=== PATIENT | female | born 1960 | race Caucasian/White ===

== ENCOUNTER 2018-11-02 10:03 | Observation (INO) | payer SELFPAY ==
[2018-11-02] MEDS ORDERED: MORPHINE SULFATE 10 MG/ML INJ IV ONE ×2 (10:50→14:31)
[2018-11-02] MEDS ORDERED: LIDOCAINE 5% (700 MG) TRANSDERMAL ADH..PATCH TP ONE (10:50)
--- NOTE | 2018-11-02 10:55 | ER Document Report ---
ED Medical Screen (RME) - General Chief Complaint: Leg Pain Stated Complaint: RIGHT LEG PAIN Time Seen by Provider: 11/02/18 10:41 TRAVEL OUTSIDE OF THE [place] IN LAST 30 DAYS: No - HPI Notes: 11/02/18 10:51 Patient is a 58-year-old female with a history of coronary artery disease with stent placement (latest 2 years ago), hypertension, tobacco abuse, sciatica who presents complaining of right buttock pain that radiates down the posterior leg to her knee which is most consistent with sciatic flareup for her. Pt states that she started having chest heaviness and sob this morning. She is not on any blood thinning medications. No history of DVT/PE. Denies THOMAS, fever, neck pain, URI, Abd pain, dysuria, or rash. I have treated and performed a rapid initial assessment of this patient. A comprehensive ED assessment and evaluation of the patient, analysis of test results and completion of medical decision making process will be conducted by additional ED providers. PHYSICAL EXAMINATION: GENERAL: Well-appearing, well-nourished and in no acute distress. A&Ox4. Answers questions appropriately. LUNGS: Breath sounds clear to auscultation bilaterally and equal. No wheezes rales or rhonchi. HEART: Regular rate and rhythm without murmurs, rubs, gallops. Extremities: No cyanosis, clubbing, or edema b/l. NEUROLOGICAL: Normal speech, normal gait. PSYCH: Normal mood, normal affect. - Related Data Allergies/Adverse Reactions: carbamazepine [From Tegretol] Allergy (Verified 11/02/18 10:07) codeine Allergy (Verified 11/02/18 10:07) Physical Exam - Vital signs Vitals: Temp Pulse Resp BP Pulse Ox 97.5 F 56 L 20 99/65 L 98 11/02/18 10:09 11/02/18 10:09 11/02/18 10:09 11/02/18 10:09 11/02/18 10:09 Course - Vital Signs Vital signs: Temp Pulse Resp BP Pulse Ox 97.5 F 56 L 20 99/65 L 98 11/02/18 10:09 11/02/18 10:09 11/02/18 10:09 11/02/18 10:09 11/02/18 10:09
--- NOTE | 2018-11-02 11:49 | RADIOLOGY REPORT (SQ) ---
EXAM DESCRIPTION: CHEST 2 VIEWS COMPLETED DATE/TIME: 11/02/2018 11:08 am REASON FOR STUDY: chest heaviness, sob COMPARISON: None. EXAM PARAMETERS: NUMBER OF VIEWS: two views TECHNIQUE: Digital Frontal and Lateral radiographic views of the chest acquired. RADIATION DOSE: NA LIMITATIONS: none FINDINGS: LUNGS AND PLEURA: No opacities, masses or pneumothorax. No pleural effusion. MEDIASTINUM AND HILAR STRUCTURES: No masses or contour abnormalities. HEART AND VASCULAR STRUCTURES: Heart normal size. No evidence for failure. BONES: No acute findings. HARDWARE: None in the chest. OTHER: No other significant finding. IMPRESSION: NO ACUTE RADIOGRAPHIC FINDING IN THE CHEST. TECHNICAL DOCUMENTATION: JOB ID: [id number] [employer]- All Rights Reserved Reading location - IP/workstation name: [email or web address]
[2018-11-02 11:53] LABS: ABSOLUTE EOSINOPHILS # (AUTO) 0.2 10^3/uL (0.0-0.6); ABSOLUTE MONOCYTES (AUTO) 0.6 10^3/uL (0.1-1.4); HEMOGLOBIN 15.2 g/dL (12.0-15.5); MONOCYTES % (AUTO) 9.5 % (3-13); RED CELL DISTRIBUTION WIDTH 13.7 % (11.5-14.0); TOTAL CELLS COUNTED % (AUTO) 100 %; WHITE BLOOD COUNT 6.7 10^3/uL (4.0-10.5)
[2018-11-02 12:02] LABS: APPEARANCE,URINE SLIGHTLY-CLOUDY; BILIRUBIN,URINE NEGATIVE (NEGATIVE); COLOR,URINE YELLOW; GLUCOSE, URINE NEGATIVE (NEGATIVE); KETONES,URINE NEGATIVE (NEGATIVE); LEUKOCYTE ESTERASE,URINE NEGATIVE (NEGATIVE); NITRITE,URINE NEGATIVE (NEGATIVE); PROTEIN,URINE NEGATIVE (NEGATIVE); URINE SPECIFIC GRAVITY 1.018
[2018-11-02 12:04] LABS: ABSOLUTE NEUT (AUTO) 3.8 10^3/uL (1.7-8.2); BASOPHILS % (AUTO) 0.7 % (0-2); EOSINOPHILS % (AUTO) 3.5 % (0-6); HEMATOCRIT 45.2 % (36.0-47.0); LYMPHOCYTES % (AUTO) 29.3 % (13-45); MEAN CORPUSCULAR HEMOGLOBIN 30.3 pg (27.0-33.4); MEAN CORPUSCULAR HGB CONC 33.5 g/dL (32.0-36.0); MEAN CORPUSCULAR VOLUME 90 fl (80-97); PLATELET COUNT 170 10^3/uL (150-450)
[2018-11-02 12:07] LABS: ALBUMIN 4.6 g/dL (3.5-5.0); ALKALINE PHOSPHATASE 72 U/L (38-126); ANION GAP 9 (5-19); ASPARTATE AMINO TRANSFERASE 24 U/L (14-36); BILIRUBIN,DIRECT 0.4 mg/dL (0.0-0.4); BILIRUBIN,TOTAL 0.8 mg/dL (0.2-1.3); BLOOD UREA NITROGEN 8 mg/dL (7-20); CALCIUM 9.9 mg/dL (8.4-10.2); CARBON DIOXIDE 27 mmol/L (22-30); CHLORIDE 103 mmol/L (98-107); GLUCOSE 90 mg/dL (75-110); POTASSIUM 4.3 mmol/L (3.6-5.0); TOTAL PROTEIN 8.1 g/dL (6.3-8.2)
--- NOTE | 2018-11-02 12:44 | EKG REPORT ---
SEVERITY:- ABNORMAL ECG - SINUS RHYTHM LVH BY VOLTAGE NONSPECIFIC T ABNORMALITIES, INFERIOR LEADS : Confirmed by: Lukas Ovalles MD 02-Nov-2018 12:43:59
--- NOTE | 2018-11-02 13:43 | ER Document Report ---
ED General - General Chief Complaint: Leg Pain Stated Complaint: RIGHT LEG PAIN Time Seen by Provider: 11/02/18 10:41 TRAVEL OUTSIDE OF THE [place] IN LAST 30 DAYS: No - HPI Notes: 58-year-old female with history of CO with 3 stents to the emergency department with 2 separate complaints. She states that her initial complaint is low back pain that radiates into her right buttocks and down the back of her leg. She states that this is been ongoing for the past several days. She states that she has a history of sciatica and this feels very similar. She states that she usually needs muscle relaxants plus pain medicine to help control it. She denies any recent falls, trauma, saddle paresthesias, bladder bowel incontinence, urinary retention, fevers,or IV drug abuse. Guards to her second complaint, she states that she has been having chest pain and shortness of breath since this morning about 6 AM. She states that it feels like heaviness in her chest and she admits to associated nausea. She states that she had a brief episode of this yesterday as well and she had nausea and diaphoresis with it. She states it is similar but less pain than when she had her heart attack. She had a heart attack 2 years ago and and was taken immediately to [facility] where 3 stents were placed. She admits that she has just recently started to smoke again. She states that she does not take any blood thinners. She states that occasionally she will take an 81 mg aspirin. She has not taken one today. She states that her chest pain seems to get a little bit worse with big deep breath but also with congestion. She denies any cough, fevers, blunt trauma to the chest, or any other complaints. - Related Data Allergies/Adverse Reactions: carbamazepine [From Tegretol] Allergy (Verified 11/02/18 10:07) codeine Allergy (Verified 11/02/18 10:07) Past Medical History - General Information source: Patient - Social History Smoking Status: Current Every Day Smoker Frequency of alcohol use: None Drug Abuse: None Family History: CAD, Hypertension Review of Systems - Review of Systems Constitutional: Diaphoresis. denies: Chills, Fever EENT: No symptoms reported Cardiovascular: Chest pain. denies: Palpitations, Orthopnea, Dyspnea, Syncope, Dizziness, Lightheaded Respiratory: Hurts to breathe, Short of breath. denies: Cough Gastrointestinal: Nausea. denies: Abdominal pain, Diarrhea, Vomiting, Fecal i ncontinence Genitourinary: denies: Incontinence, Retention Musculoskeletal: Back pain - Low back pain that radiates down the right buttocks and leg Skin: No symptoms reported Hematologic/Lymphatic: No symptoms reported Neurological/Psychological: No symptoms reported -: Yes All other systems reviewed and negative Physical Exam - Vital signs Vitals: Temp Pulse Resp BP Pulse Ox 97.5 F 56 L 20 99/65 L 98 11/02/18 10:09 11/02/18 10:09 11/02/18 10:09 11/02/18 10:09 11/02/18 10:09 Interpretation: Normal - General General appearance: Alert, Other - Chronically ill-appearing - HEENT Head: Normocephalic, Atraumatic Eyes: Normal Pupils: PERRL - Respiratory Respiratory status: No respiratory distress Chest status: Nontender Breath sounds: Normal Chest palpation: Normal - Cardiovascular Rhythm: Regular Heart sounds: Normal auscultation Murmur: No Notes: No pitting leg edema - Abdominal Inspection: Normal Distension: No distension Bowel sounds: Normal Tenderness: Nontender Organomegaly: No organomegaly - Back Back: Tender - Positive tenderness to palpation over the right lumbar spine and over to the right lumbosacral region. There is noted point tenderness to the right buttocks. No evidence of shingles. Pain radiates down the back of her leg per patient but she has no straight leg raise bilaterally. Bilateral lower extremities have 5 out of 5 strength against resistance in flexion and extension - Extremities General lower extremity: No: Yue's sign - Neurological Neuro grossly intact: Yes Cognition: Normal Orientation: AAOx4 Martin Coma Scale Eye Opening: Spontaneous Martin Coma Scale Verbal: Oriented Martin Coma Scale Motor: Obeys Commands Martin Coma Scale Total: 15 Speech: Normal Motor strength normal: LUE, RUE, LLE, RLE Sensory: Normal - Psychological Associated symptoms: Normal affect, Normal mood - Skin Skin Temperature: Warm Skin Moisture: Dry Skin Color: Normal Course - Re-evaluation Re-evalutation: 11/02/18 Chest X-Ray 11/02/18 10:49 IMPRESSION: NO ACUTE RADIOGRAPHIC FINDING IN THE CHEST. 11/02/18 58 year old female the emergency department with 2 separate complaints. One is an exasperation of her chronic Sciatica. The other is for chest pain and shortness of breath that began this morning. She has some nuances to her story that are concerning such as diaphoresis and nausea. She is a patient who has had a heart attack before with 3 stents placed in [place] 2 years ago. We will trend her troponins. First troponin is negative. Noted that she has a heart score of 5. 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 She also states that she recently began to s moke again. 11/02/18 18:04 Spoke with JANETH Farah, hospitalist JANETH. Agrees with plan for admission. Will come and see the patient. Impression: Chest pain with HEART SCORE of 5, sciatica. Patient to be admitted to the hospital for further evaluation of her chest pain. Bipin agrees with the plan. Discussed with Dr. Wilson, ER attending, and he agrees with the plan. - Vital Signs Vital signs: Temp Pulse Resp BP Pulse Ox 97.5 F 56 L 17 127/89 H 99 11/02/18 10:09 11/02/18 10:09 11/02/18 15:00 11/02/18 15:02 11/02/18 15:15 - Laboratory Result Diagrams: 11/02/18 11:30 11/02/18 11:30 Laboratory results interpreted by me: 11/02/18 11:30 Urine Urobilinogen 2.0 H - Diagnostic Test Radiology reviewed: Image reviewed, Reports reviewed - EKG Interpretation by Me EKG shows normal: Sinus rhythm Rate: Normal Rhythm: NSR When compared to previous EKG there are: Previous EKG unavailable Additional EKG results interpreted by me: 11/02/18 No STEMI, T wave inversions in III, aVf, as well as V2/V3. No comparison available. Discharge - Discharge Clinical Impression: Sciatica Chest pain Qualifiers: Chest pain type: unspecified Qualified Code(s): R07.9 - Chest pain, unspecified Condition: Stable Disposition: ADMITTED INPATIENT Admitting Provider: Vladislav (Hospitalist) Unit Admitted: Medical Floor
[2018-11-02] MEDS ORDERED: ASPIRIN 325 MG TABLET PO ONE (14:30)
[2018-11-02] MEDS ORDERED: ONDANSETRON HCL INJ/PF 4 MG/2 ML SDV IV PRN (18:07)
[2018-11-02] MEDS ORDERED: TEMAZEPAM 15 MG CAPSULE PO PRN (18:07)
[2018-11-02] MEDS ORDERED: MAG HYDROX/AL HYDROX/SIMETH SUSP 30 ML UDCUP PO PRN (18:07)
[2018-11-02] MEDS ORDERED: NITROGLYCERIN 0.4 MG/TAB 25 TAB/BOTTLE SL PRN (18:07)
[2018-11-02] MEDS ORDERED: ACETAMINOPHEN 325 MG TABLET PO PRN (18:07)
--- NOTE | 2018-11-02 18:43 | PDOC H&P ---
History of Present Illness Admission Date/PCP: 11/02/18 17:56 11/02/2018 she has no PCP here. Patient moved here from [place] about 8 months ago. Patient complains of: Patient complains of right hip pain and right leg pain which is "her sciatica". Patient states that for the last 2 days she has been having heaviness or chest pain as well. Patient states she thinks it is coming from the pain she is having in her hip, does not remind her of the pain she had 2 years ago with her WI. Pain does not radiate to the left upper extremity through the back or up into the neck. No shortness of breath. History of Present Illness: ROSY DIAZ is a 58 year old female who comes in with a 2-day history of episodic chest pain. Patient states that started yesterday and lasted about 20 minutes she had 3 separate times yesterday. She states that since being in the ER she has not had it now for about the last 4 hours Past history patient did have an WI back in July 2016 and has had 3 stents. Patient takes no regular medication she says occasionally she takes a baby aspirin. Patient denies hypertension she denies diabetes she does smoke a pack per day. 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 Patient has no PCP here in town. Past Medical History Cardiac Medical History: Reports: Myocardial Infarction, Other - 3 stents Pulmonary Medical History: Reports: None EENT Medical History: Reports: None Neurological Medical History: Reports: None Endocrine Medical History: Reports: None Malignancy Medical History: Reports: None GI Medical History: Reports: None Psychiatric Medical History: Reports: Tobacco Dependency Social History Smoking Status: Current Every Day Smoker Family History Family History: None, CAD, Hypertension Parental Family History Reviewed: No Children Family History Reviewed: No Sibling(s) Family History Reviewed.: No Medication/Allergy Allergies/Adverse Reactions: carbamazepine [From Tegretol] Allergy (Verified 11/02/18 10:07) codeine Allergy (Verified 11/02/18 10:07) Review of Systems Constitutional: ABSENT: chills, fever(s), headache(s), weight gain, weight loss Eyes: ABSENT: visual disturbances Ears: ABSENT: hearing changes Cardiovascular: PRESENT: chest pain - For the last 2 days off and on Respiratory: ABSENT: cough, hemoptysis Gastrointestinal: ABSENT: abdominal pain, constipation, diarrhea, hematemesis, hematochezia, nausea, vomiting Musculoskeletal: ABSENT: joint swelling Neurological: PRESENT: numbness, paresthesias, other - Right leg only down to the knee. ABSENT: abnormal gait, abnormal speech, confusion, dizziness, focal weakness, syncope Physical Exam Vital Signs: Temp Pulse Resp BP Pulse Ox 97.5 F 56 L 17 127/89 H 99 11/02/18 10:09 11/02/18 10:09 11/02/18 15:00 11/02/18 15:02 11/02/18 15:15 Intake & Output 11/01/18 11/02/18 11/03/18 06:59 06:59 06:59 Weight 74 kg General appearance: PRESENT: no acute distress, well-developed, well-nourished Head exam: PRESENT: atraumatic, normocephalic Eye exam: PRESENT: conjunctiva pink, EOMI, PERRLA. ABSENT: scleral icterus Respiratory exam: PRESENT: clear to auscultation maxi. ABSENT: rales, rhonchi, wheezes Cardiovascular exam: PRESENT: RRR. ABSENT: diastolic murmur, rubs, systolic murmur GI/Abdominal exam: PRESENT: normal bowel sounds, soft. ABSENT: distended, guarding, mass, organolmegaly, rebound, tenderness Neurological exam: PRESENT: alert, awake, oriented to person, oriented to place, oriented to time, oriented to situation, CN II-XII grossly intact. ABSENT: motor sensory deficit Psychiatric exam: PRESENT: appropriate affect, normal mood. ABSENT: homicidal ideation, suicidal ideation Results Laboratory Results: 11/02/18 11:30 11/02/18 11:30 11/02/18 11/02/18 11/02/18 11:30 11:30 11:30 WBC 6.7 RBC 5.00 Hgb 15.2 Hct 45.2 MCV 90 MCH 30.3 MCHC 33.5 RDW 13.7 Plt Count 170 Seg Neutrophils % 57.0 Lymphocytes % 29.3 Monocytes % 9.5 Eosinophils % 3.5 Basophils % 0.7 Absolute Neutrophils 3.8 Absolute Lymphocytes 2.0 Absolute Monocytes 0.6 Absolute Eosinophils 0.2 Absolute Basophils 0.0 Sodium 138.8 Potassium 4.3 Chloride 103 Carbon Dioxide 27 Anion Gap 9 BUN 8 Creatinine 0.78 Est GFR ( Amer) > 60 Est GFR (Non-Af Amer) > 60 Glucose 90 Calcium 9.9 Total Bilirubin 0.8 AST 24 Alkaline Phosphatase 72 Total Protein 8.1 Albumin 4.6 Urine Color YELLOW Urine Appearance SLIGHTLY-CLOUDY Urine pH 6.0 Ur Specific [place] 1.018 Urine Protein NEGATIVE Urine Glucose (UA) NEGATIVE Urine Ketones NEGATIVE Urine Blood NEGATIVE Urine Nitrite NEGATIVE Ur Leukocyte Esterase NEGATIVE Urine WBC (Auto) 1 Urine RBC (Auto) 1 11/02/18 11/02/18 11:30 16:30 Troponin I < 0.012 < 0.012 Impressions: Chest X-Ray 11/02/18 10:49 IMPRESSION: NO ACUTE RADIOGRAPHIC FINDING IN THE CHEST. Assessment and Plan - Diagnosis (1) Tobacco abuse Is this a current diagnosis for this admission?: Yes Plan: 11/02/2018 we will offer patient NicoDerm patch if she desires (2) CAD (coronary artery disease) Is this a current diagnosis for this admission?: Yes Plan: 11/02/2018 cardiology will be consulted for out these. First 2 troponins are normal third 1 has not been drawn yet. Patient will be placed on baby aspirin daily, lipids will be checked, pain medicine will be ordered as needed, she was placed on Lovenox milligram per kilogram. Patient is currently pain-free (3) Chest pain Qualifiers: Chest pain type: unspecified Qualified Code(s): R07.9 - Chest pain, unspecified Is this a current diagnosis for this admission?: Yes Plan: 11/02/2018 patient will be placed on routine chest protocol (4) Sciatica Is this a current diagnosis for this admission?: Yes Plan: 11/02/2018 patient's hip and leg pain will be treated as needed. - Time Time Spent with patient: 35 or more minutes
[2018-11-02] MEDS: ENOXAPARIN SODIUM INJ 80 MG/0.8 ML DISP.SYRIN SUBCUT SCH (19:06)
[2018-11-02] MEDS ORDERED: ACETAMINOPHEN 650 MG SUPP.RECT PR PRN (19:07)
[2018-11-02 19:47] LABS: CHOLESTEROL 302.11 mg/dL (0-200); TRIGLYCERIDES 127 mg/dL (<150)
[2018-11-02 19:58] LABS: DIRECT LDL 234 mg/dL (<100)
[2018-11-02] MEDS ORDERED: NICOTINE 14 MG/24 HR PATCH.TD24 TD PRN (20:16)
[2018-11-02] MEDS: MORPHINE SULFATE 10 MG/ML INJ IV PRN (21:49)
[2018-11-02] MEDS ORDERED: ENOXAPARIN SODIUM INJ 80 MG/0.8 ML DISP.SYRIN SUBCUT SCH (22:00)
[2018-11-03] MEDS: MORPHINE SULFATE 10 MG/ML INJ IV PRN (03:53)
[2018-11-03 06:40] LABS: HEMOGLOBIN 13.7 g/dL (12.0-15.5); MEAN CORPUSCULAR HGB CONC 33.5 g/dL (32.0-36.0); MEAN CORPUSCULAR VOLUME 90 fl (80-97); PLATELET COUNT 137 10^3/uL (150-450); RED BLOOD COUNT 4.58 10^6/uL (3.72-5.28); RED CELL DISTRIBUTION WIDTH 13.6 % (11.5-14.0); WHITE BLOOD COUNT 5.5 10^3/uL (4.0-10.5)
[2018-11-03] MEDS ORDERED: ATORVASTATIN CALCIUM 10 MG TABLET PO ONE (07:40)
--- NOTE | 2018-11-03 07:49 | EKG REPORT ---
SEVERITY:- ABNORMAL ECG - SINUS RHYTHM BORDERLINE LEFT AXIS DEVIATION NONSPECIFIC T ABNORMALITIES, INFERIOR LEADS : Confirmed by: Lukas Ovalles MD 03-Nov-2018 07:48:45
[2018-11-03 08:57] VITALS: BP 103/55
[2018-11-03] MEDS: ENOXAPARIN SODIUM INJ 80 MG/0.8 ML DISP.SYRIN SUBCUT SCH (09:26)
[2018-11-03] MEDS ORDERED: DOCUSATE SODIUM 100 MG CAPSULE PO SCH (10:00)
[2018-11-03] MEDS ORDERED: ASPIRIN 81 MG TABLET, ENT COATED PO SCH (10:00)
[2018-11-03] MEDS ORDERED: FAMOTIDINE 20 MG TABLET PO SCH (10:00)
[2018-11-03] MEDS ORDERED: OXYCODONE-ACETAMINOPHEN 5-325 MG TABLET PO PRN (10:40)
--- NOTE | 2018-11-03 11:48 | PDOC DISCHARGE SUMMARY ---
General - Admit/Disc Date/PCP Admission Date/Primary Care Provider: 11/02/18 17:56 11/03/2018 patient is being discharged home today with no chest pain. Patient is seeing cardiology and he is concurred that she is safe to be discharged. Troponin x3 was negative. Patient is being sent home on Lipitor and 181 mg aspirin daily as well as NicoDerm patches 14 mg patch. She is to follow-up with cardiology within the next 30 days Patient also had a prescription written for nitroglycerin sublingual as needed Discharge Date: 11/03/18 - Discharge Diagnosis (1) Tobacco abuse Is this a current diagnosis for this admission?: Yes Summary: 11/03/2018 patient is being discharged home with NicoDerm patches 14 mg #30 (2) CAD (coronary artery disease) Is this a current diagnosis for this admission?: Yes Summary: 11/03/2018 patient's troponins were negative x3 stress test was failed today due to sciatica. Patient will see the manager integrity within 30 days. (3) Chest pain Is this a current diagnosis for this admission?: Yes Summary: 11/03/2018 patient has had no chest pain since she is been in the hospital. Playroom Attendant thinks that it may have been spasm, coronary (4) Sciatica Is this a current diagnosis for this admission?: Yes Summary: 11/03/2018 patient will continue her previous treatments for sciatica, prior to admission. Known prescriptions were written for her sciatica. - Additional Information Resuscitation Status: Full Code Discharge Diet: Cardiac Discharge Activity: Activity As Tolerated Prescriptions: Atorvastatin Calcium [Lipitor 20 mg Tablet] 20 mg PO QHS #30 tablet Nicotine [Nicoderm 14 mg/24 Hr Transdermal Patch] 14 mg TD DAILYP PRN #30 patch. td24 PRN Reason: Nitroglycerin [Nitrostat 0.4 mg (1/150 Gr) Tabs 25/Bottle] 1 tab SL Q5MP PRN 30 Days bottle PRN Reason: Home Medications: Aspirin [Ecotrin 81 mg EC Tablet] 81 mg PO DAILY tabec 11/03/18 Atorvastatin Calcium [Lipitor 20 mg Tablet] 20 mg PO QHS #30 tablet 11/03/18 Nicotine [Nicoderm 14 mg/24 Hr Transdermal Patch] 14 mg TD DAILYP PRN #30 patch.td24 11/03/18 Nitroglycerin [Nitrostat 0.4 mg (1/150 Gr) Tabs 25/Bottle] 1 tab SL Q5MP PRN 30 Days bottle 11/03/18 History of Present Illness History of Present Illness: ROSY DIAZ is a 58 year old female who comes in with a 2-day history of episodic chest pain. Patient states that started yesterday and lasted about 20 minutes she had 3 separate times yesterday. She states that since being in the ER she has not had it now for about the last 4 hours Past history patient did have an AL back in July 2016 and has had 3 stents. Patient takes no regular medication she says occasionally she takes a baby aspirin. Patient denies hypertension she denies diabetes she does smoke a pack per day. 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 Patient has no PCP here in town. 11/03/2018 patient has had no chest pain since admitted to the hospital. Patient has seen cardiology. Cardiology feels it safe for the patient to be discharged home and see him as an outpatient. Hospital Course Hospital Course: 11/03/2018 patient attempted a treadmill stress test today but failed due to back pain and sciatic pain. This will be repeated as an outpatient with pharmacology assistance. Physical Exam Vital Signs: Temp Pulse Resp BP Pulse Ox 98.4 F 58 L 14 103/55 L 94 11/03/18 07:38 11/03/18 07:38 11/03/18 07:38 11/03/18 07:38 11/03/18 07:38 Intake & Output 11/02/18 11/03/18 11/04/18 06:59 06:59 06:59 Output Total 0 Balance 0 Weight 74 kg General appearance: PRESENT: no acute distress Eye exam: PRESENT: conjunctiva pink, EOMI, PERRLA. ABSENT: scleral icterus Respiratory exam: PRESENT: clear to auscultation maxi. ABSENT: rales, rhonchi, wheezes Cardiovascular exam: PRESENT: RRR. ABSENT: diastolic murmur, rubs, systolic murmur Rectal exam: PRESENT: deferred Neurological exam: PRESENT: alert, awake, oriented to person, oriented to place, oriented to time, oriented to situation, CN II-XII grossly intact, other - No focal neurologic deficits. ABSENT: motor sensory deficit Psychiatric exam: PRESENT: appropriate affect, normal mood. ABSENT: homicidal ideation, suicidal ideation Results Laboratory Results: 11/03/18 06:35 11/02/18 11:30 11/02/18 11/02/18 11/02/18 11:30 11:30 11:30 WBC 6.7 RBC 5.00 Hgb 15.2 Hct 45.2 MCV 90 MCH 30.3 MCHC 33.5 RDW 13.7 Plt Count 170 Seg Neutrophils % 57.0 Lymphocytes % 29.3 Monocytes % 9.5 Eosinophils % 3.5 Basophils % 0.7 Absolute Neutrophils 3.8 Absolute Lymphocytes 2.0 Absolute Monocytes 0.6 Absolute Eosinophils 0.2 Absolute Basophils 0.0 Sodium 138.8 Potassium 4.3 Chloride 103 Carbon Dioxide 27 Anion Gap 9 BUN 8 Creatinine 0.78 Est GFR ( Amer) > 60 Est GFR (Non-Af Amer) > 60 Glucose 90 Calcium 9.9 Total Bilirubin 0.8 AST 24 Alkaline Phosphatase 72 Total Protein 8.1 Albumin 4.6 Triglycerides Cholesterol LDL Cholesterol Direct VLDL Cholesterol HDL Cholesterol Urine Color YELLOW Urine Appearance SLIGHTLY-CLOUDY Urine pH 6.0 Ur Specific [place] 1.018 Urine Protein NEGATIVE Urine Glucose (UA) NEGATIVE Urine Ketones NEGATIVE Urine Blood NEGATIVE Urine Nitrite NEGATIVE Ur Leukocyte Esterase NEGATIVE Urine WBC (Auto) 1 Urine RBC (Auto) 1 11/02/18 11/03/18 19:09 06:35 WBC 5.5 RBC 4.58 Hgb 13.7 Hct 41.0 MCV 90 MCH 30.0 MCHC 33.5 RDW 13.6 Plt Count 137 L Seg Neutrophils % Lymphocytes % Monocytes % Eosinophils % Basophils % Absolute Neutrophils Absolute Lymphocytes Absolute Monocytes Absolute Eosinophils Absolute Basophils Sodium Potassium Chloride Carbon Dioxide Anion Gap BUN Creatinine Est GFR ( Amer) Est GFR (Non-Af Amer) Glucose Calcium Total Bilirubin AST Alkaline Phosphatase Total Protein Albumin Triglycerides 127 Cholesterol 302.11 H LDL Cholesterol Direct 234 H VLDL Cholesterol 25.0 HDL Cholesterol 41 Urine Color Urine Appearance Urine pH Ur Specific [place] Urine Protein Urine Glucose (UA) Urine Ketones Urine Blood Urine Nitrite Ur Leukocyte Esterase Urine WBC (Auto) Urine RBC (Auto) 11/02/18 11/02/18 11/02/18 11:30 16:30 19:09 CK-MB (CK-2) 0.36 Troponin I < 0.012 < 0.012 11/02/18 11/03/18 11/03/18 19:09 01:05 06:35 CK-MB (CK-2) Troponin I < 0.012 < 0.012 < 0.012 Impressions: Chest X-Ray 11/02/18 10:49 IMPRESSION: NO ACUTE RADIOGRAPHIC FINDING IN THE CHEST. Qualifiers - * PATIENT BEING DISCHARGED WITH ANY OF THE FOLLOWING DIAGNOSIS: No Acute Heart Failure - Is this a Heart Failure Patient?: No Plan Discharge Plan: 11/03/2018 patient is scheduled to see Dr. Hyman, the manager integrity, as an outpatient within the next 30 days. He is recommended sending her home on 1 baby aspirin daily, nitroglycerin sublingual as needed, and a statin which I written for Lipitor 20 mg number 30 tablets. Patient is medically stable pat ient seems satisfied Time Spent: Greater than 30 Minutes
--- NOTE | 2018-11-03 22:12 | PDOC CONSULTATION ---
Consultation-Blank Consultation: CARDIOLOGY CONSULTATION by Dr. Analilia Cadena on 11/03/2018. Patient seen at 1 PM on 11/03/2018. 60 minutes spent on this patient more than 50% times spent direct patient care. Reason FOR CONSULTATION: Patient with history of coronary artery disease, history of myocardial infarction stents during the past, and history of stents in the LAD and RCA with nonexertional chest pressure. CONSULT REQUESTING DIVIDER: Mr. Simeon Sofi, nurse practitioner, [facility] hospitalist group HISTORY PRESENT ILLNESS: Patient is a 58-year-old female with known history of coronary artery disease, and history of coronary artery stents in the past after myocardial infarction is x2. She states that she had a stent in the LAD and 2 stents in the distal RCA. She will give me the cards later on as to the exact location of the stents. The patient initially came to the hospital for right-sided sciatica flare flareup with pain in the right buttock shooting down into her leg. She also mentioned the patient that she has not had a cardiology follow-up since her last stress test which is more than 3 years ago. She states at the time of the stress test she had a myocardial infarction which led to a stent placement. Hence the patient is reluctant and very scared to have a Cardiolite stress test. The patient told the ER physician that the patient's the past year or so she has been having episodes of chest pressure unrelated to exertion, and with no associated symptoms. She states this is different from her GERD symptoms. It is not brought on or increased with exertion. Since this complaint was raised to the ER provider, the patient was admitted for serial EKGs and enzymes. [place] is ruled out. The patient refused to have a Lexiscan Cardiolite or exercise Cardiolite stress test, and wanted to do a regular treadmill stress test. The patient achieved only 61% of maximum predicted heart rate for age, and was inconclusive. This was due to the fact that she could not exercise due to right leg sciatica. Also the patient states that her chest pain is different from her pain that she had when she had a myocardial infarction in the past. She is convinced that it is noncardiac also. She wants to go home and be followed up as an outpatient. The patient does appear to be stable and can be followed up. The problem with the patient is that she is bradycardic with a heart rate of 58 and her blood pressure is 98 systolic to 103 systolic, and hence this precludes the use of any beta-blockers or nitrates. The best option is to place the patient on aspirin, statin and sublingual nitroglycerin as needed. Also would try to convince the patient to consent for IV Lexiscan Cardiolite stress test in in the future. Past Medical History Cardiac Medical History: Reports: Myocardial Infarction, Other - 3 stents Pulmonary Medical History: Reports: None EENT Medical History: Reports: None Neurological Medical History: Reports: None Endocrine Medical History: Reports: None Malignancy Medical History: Reports: None GI Medical History: Reports: None Psychiatric Medical History: Reports: Tobacco Dependency Social History Smoking Status: Current Every Day Smoker Family History Family History: None, CAD, Hypertension Medication/Allergy Allergies/Adverse Reactions: carbamazepine,codeine Allergy (Verified 11/02/18 10:07) RESUSCITATION STATUS: The patient is a full code. Her son is her surrogate healthcare decision maker Review of Systems Constitutional: ABSENT: chills, fever(s), headache(s), weight gain, weight loss Eyes: ABSENT: visual disturbances Ears: ABSENT: hearing changes Cardiovascular: PRESENT: chest pain - For the last 2 days off and on Respiratory: ABSENT: cough, hemoptysis Gastrointestinal: ABSENT: abdominal pain, constipation, diarrhea, hematemesis, hematochezia, nausea, vomiting Musculoskeletal: ABSENT: joint swelling Neurological: PRESENT: numbness, paresthesias, other - Right leg only down to the knee. ABSENT: abnormal gait, abnormal speech, confusion, dizziness, focal weakness, syncope Medications reviewed. In view of the patient's blood pressure being low unable to place the patient on any meaningful anti-CAD regimen except aspirin. Her heart rate is also low and hence cannot use beta-blockers. Medications as per MAY. PHYSICAL EXAMINATION: The patient is mildly obese. She is well-groomed in no acute distress. Selected Entries 11/03/18 07:38 Temperature 98.4 F Temperature Oral Source Pulse Rate 58 L Respiratory 14 Rate Blood Pressure 103/55 L Blood Pressure 71 Mean BP Location Left Arm BP Position Supine O2 Sat by Pulse 94 Oximetry Oxygen Delivery Room Air Method HEAD: Is atraumatic normocephalic. ENT is negative. Neck is supple. There is no JVD. Carotids are equal there is no bruits. There is no lymphadenopathy. There is no goiter. There is no accessory muscle respiration use. LUNGS: Is clear to auscultation percussion without any rhonchi rales or wheezing. On palpation there is no tenderness. HEART: S1-S2 is heard. There is no S3 gallop. There is no S4 gallop. There is systolic murmur left sternal border and the apex there is no rub. ABDOMEN: Is soft there is no hepatosplenomegaly. Bowel sounds are well heard. EXTREMITIES: Femorals are slightly diminished. There is no femoral bruits. Leg pulses are well felt. There is no DVT or cellulitis. There is no pedal edema. There is pain on movements of the right buttock. And right hip. SLR is reduced on the right lower extremity. BOTTLE PACKER: The patient is conscious awake alert oriented x3 with no focal deficits. PSYCHIATRIC: The patient judgment insight are intact her affect is normal. Labs- Entire Visit 11/02/18 11/02/18 11/02/18 11:30 11:30 11:30 WBC 6.7 RBC 5.00 Hgb 15.2 Hct 45.2 MCV 90 MCH 30.3 MCHC 33.5 RDW 13.7 Plt Count 170 Seg Neutrophils % 57.0 Lymphocytes % 29.3 Monocytes % 9.5 Eosinophils % 3.5 Basophils % 0.7 Absolute Neutrophils 3.8 Absolute Lymphocytes 2.0 Absolute Monocytes 0.6 Absolute Eosinophils 0.2 Absolute Basophils 0.0 Sodium 138.8 Potassium 4.3 Chloride 103 Carbon Dioxide 27 Anion Gap 9 BUN 8 Creatinine 0.78 Est GFR ( Amer) > 60 Est GFR (Non-Af Amer) > 60 Glucose 90 Calcium 9.9 Total Bilirubin 0.8 Direct Bilirubin 0.4 Neonat Total Bilirubin Not Reportable Neonat Direct Bilirubin Not Reportable Neonat Indirect Bili Not Reportable AST 24 ALT 11 Alkaline Phosphatase 72 CK-MB (CK-2) Troponin I < 0.012 Total Protein 8.1 Albumin 4.6 Triglycerides Cholesterol LDL Cholesterol Direct VLDL Cholesterol HDL Cholesterol Urine Color Urine Appearance Urine pH Ur Specific [place] Urine Protein Urine Glucose (UA) Urine Ketones Urine Blood Urine Nitrite Urine Bilirubin Urine Urobilinogen Ur Leukocyte Esterase Urine WBC (Auto) Urine RBC (Auto) U Hyaline Cast (Auto) Squamous Epi Cells Auto Urine Mucus (Auto) Urine Ascorbic Acid 08/06/19 08/06/19 08/06/19 11:30 16:30 19:09 WBC RBC Hgb Hct MCV MCH MCHC RDW Plt Count Seg Neutrophils % Lymphocytes % Monocytes % Eosinophils % Basophils % Absolute Neutrophils Absolute Lymphocytes Absolute Monocytes Absolute Eosinophils Absolute Basophils Sodium Potassium Chloride Carbon Dioxide Anion Gap BUN Creatinine Est GFR ( Amer) Est GFR (Non-Af Amer) Glucose Calcium Total Bilirubin Direct Bilirubin Neonat Total Bilirubin Neonat Direct Bilirubin Neonat Indirect Bili AST ALT Alkaline Phosphatase CK-MB (CK-2) 0.36 Troponin I < 0.012 Total Protein Albumin Triglycerides Cholesterol LDL Cholesterol Direct VLDL Cholesterol HDL Cholesterol Urine Color YELLOW Urine Appearance SLIGHTLY-CLOUDY Urine pH 6.0 Ur Specific [place] 1.018 Urine Protein NEGATIVE Urine Glucose (UA) NEGATIVE Urine Ketones NEGATIVE Urine Blood NEGATIVE Urine Nitrite NEGATIVE Urine Bilirubin NEGATIVE Urine Urobilinogen 2.0 H Ur Leukocyte Esterase NEGATIVE Urine WBC (Auto) 1 Urine RBC (Auto) 1 U Hyaline Cast (Auto) 1 Squamous Epi Cells Auto 6 Urine Mucus (Auto) OCC Urine Ascorbic Acid NEGATIVE 11/02/18 11/02/18 11/03/18 19:09 19:09 01:05 WBC RBC Hgb Hct MCV MCH MCHC RDW Plt Count Seg Neutrophils % Lymphocytes % Monocytes % Eosinophils % Basophils % Absolute Neutrophils Absolute Lymphocytes Absolute Monocytes Absolute Eosinophils Absolute Basophils Sodium Potassium Chloride Carbon Dioxide Anion Gap BUN Creatinine Est GFR ( Amer) Est GFR (Non-Af Amer) Glucose Calcium Total Bilirubin Direct Bilirubin Neonat Total Bilirubin Neonat Direct Bilirubin Neonat Indirect Bili AST ALT Alkaline Phosphatase CK-MB (CK-2) Troponin I < 0.012 < 0.012 Total Protein Albumin Triglycerides 127 Cholesterol 302.11 H LDL Cholesterol Direct 234 H VLDL Cholesterol 25.0 HDL Cholesterol 41 Urine Color Urine Appearance Urine pH Ur Specific [place] Urine Protein Urine Glucose (UA) Urine Ketones Urine Blood Urine Nitrite Urine Bilirubin Urine Urobilinogen Ur Leukocyte Esterase Urine WBC (Auto) Urine RBC (Auto) U Hyaline Cast (Auto) Squamous Epi Cells Auto Urine Mucus (Auto) Urine Ascorbic Acid 11/03/18 11/03/18 06:35 06:35 WBC 5.5 RBC 4.58 Hgb 13.7 Hct 41.0 MCV 90 MCH 30.0 MCHC 33.5 RDW 13.6 Plt Count 137 L Seg Neutrophils % Lymphocytes % Monocytes % Eosinophils % Basophils % Absolute Neutrophils Absolute Lymphocytes Absolute Monocytes Absolute Eosinophils Absolute Basophils Sodium Potassium Chloride Carbon Dioxide Anion Gap BUN Creatinine Est GFR ( Amer) Est GFR (Non-Af Amer) Glucose Calcium Total Bilirubin Direct Bilirubin Neonat Total Bilirubin Neonat Direct Bilirubin Neonat Indirect Bili AST ALT Alkaline Phosphatase CK-MB (CK-2) Troponin I < 0.012 Total Protein Albumin Triglycerides Cholesterol LDL Cholesterol Direct VLDL Cholesterol HDL Cholesterol Urine Color Urine Appearance Urine pH Ur Specific [place] Urine Protein Urine Glucose (UA) Urine Ketones Urine Blood Urine Nitrite Urine Bilirubin Urine Urobilinogen Ur Leukocyte Esterase Urine WBC (Auto) Urine RBC (Auto) U Hyaline Cast (Auto) Squamous Epi Cells Auto Urine Mucus (Auto) Urine Ascorbic Acid Chest X-Ray 11/02/18 10:49 IMPRESSION: NO ACUTE RADIOGRAPHIC FINDING IN THE CHEST. Her initial EKG shows sinus bradycardia. Nonspecific T changes in leads V1 to V3 and inferior leads. Subsequent EKG shows sinus rhythm. Similar findings with T wave inversion V1 V3 much improved. Patient's echocardiogram shows normal ejection fraction with no significant abnormalities. Impression/RECOMMENDATION: 1. Nonexertional chest pressure: Does not suggest angina. So far no major EKG changes of ischemia, and cardiac biomarkers have been negative. 2.Coronary artery disease: History of old myocardial infarction, and history of stents in the LAD and RCA. Patient will give me the stent cards later on. Note that the patient is only on aspirin. Her blood pressure is low and hence cannot add any anti-CAD medications, and also her heart rate is bradycardic and hence cannot use beta-blockers. Hence would recommend that the patient be on aspirin, statin, and sublingual nitroglycerin as needed. I have discussed with the patient that in spite of her desire not to undergo a Cardiolite stress test, I have explained to her that the stress test done in the hospital is safe. The patient will rethink about it. Note that the patient had a regular EKG treadmill stress test, which was inconclusive due to the patient achieving only 61% of the maximum predicted heart rate for age. 3. Right-sided sciatica with flareup. Continue analgesics. 4. Hyperlipidemia: Continue statins. 5. Tobacco abuse disorder: Tobacco cessation counseling given to the patient. Behavioral and pharmacological therapies discussed with the patient. 5 minutes spent on this. Medications reviewed management plan and medication treatment discussed with the attending provider on the case. Medical decision making is of moderate to high complexity. The patient needs close cardiology follow-up. The patient desires to follow-up with me in the office. Contact numbers given. Will sign off.
--- NOTE | 2018-11-03 22:36 | XCELERA REPORT ---
[address] [address] Transthoracic Echocardiogram Report Name: ROSY DIAZ Age: 58 yrs Gender: Female : 1960 Patient Status: Inpatient Patient Location: [facility]^A Study Date: 11/03/2018 10:04 AM Weight: 160 lb Procedure: A two-dimensional transthoracic echocardiogram with color flow and Doppler was performed. Study Quality: Fair. Reason For Study: CHEST PAIN / CAD History: CHEST PAIN / CAD. Ordering Physician: JAVIER CARVALHO Performed By: Anjana Raya Interpretation Summary The left ventricle is normal in size. There is normal left ventricular wall thickness. The left ventricular ejection fraction is within normal limits. LV EF is 65% Doppler measurements suggest normal left ventricular diastolic function The left ventricular wall motion is normal. There is no thrombus. Cannot assess ASD ,VSD , or PFO. The right ventricle is grossly normal size. The left atrial size is normal. There is no evidence of mitral valve prolapse. There is no vegetation seen on the mitral valve. There is no mitral valve stenosis. There is a trace amount of mitral regurgitation There is no aortic valvular vegetation. There is aortic sclerosis without aortic stenosis. There is no LVOT obstruction. No aortic regurgitation is present. There is no tricuspid stenosis. There is a trace amount of tricuspid regurgitation Right ventricular systolic pressure is normal. RVSP is 22 to 27 mm of Hg , with RA mean of 5 to 10. There is no pulmonic valvular stenosis. There is a trace amount of pulmonic regurgitation The aortic root is normal size. The inferior vena cava appeared normal and decreased > 50% with respiration (RAP 5-10 mmHg) There is no pericardial effusion. MMode/2D Measurements & Calculations RVDd: 2.9 cm LVIDd: 4.8 cm FS: 30.0 % Ao root diam: 2.4 cm IVSd: 0.72 cm LVIDs: 3.3 cm EDV(Teich): 106.6 ml LVPWd: 0.92 cm ESV(Teich): 45.6 ml Ao root area: 4.5 cm2 EF(Teich): 57.2 % Doppler Measurements & Calculations MV E max viridiana: MV dec slope: Ao V2 max: LV V1 max P.6 cm/sec 98.8 cm/sec 2.1 mmHg MV A max viridiana: 277.5 cm/sec2 Ao max PG: LV V1 max: 50.3 cm/sec MV dec time: 0.24 sec 3.9 mmHg 71.8 cm/sec MV E/A: 1.3 PA V2 max: TR max viridiana: 70.3 cm/sec 206.2 cm/sec PA max P.0 mmHg TR max P.0 mmHg Left Ventricle The left ventricle is normal in size. There is normal left ventricular wall thickness. The left ventricular ejection fraction is within normal limits. LV EF is 65%. Doppler measurements suggest normal left ventricular diastolic function. The left ventricular wall motion is normal. There is no thrombus. Cannot assess ASD ,VSD , or PFO. Right Ventricle The right ventricle is grossly normal size. Atria The right atrium is normal. The left atrial size is normal. Mitral Valve There is no evidence of mitral valve prolapse. There is no vegetation seen on the mitral valve. There is no mitral valve stenosis. There is a trace amount of mitral regurgitation. Aortic Valve There is no aortic valvular vegetation. There is aortic sclerosis without aortic stenosis. There is no LVOT obstruction. No aortic regurgitation is present. Tricuspid Valve There is no tricuspid stenosis. There is a trace amount of tricuspid regurgitation. Right ventricular systolic pressure is normal. RVSP is 22 to 27 mm of Hg , with RA mean of 5 to 10. Pulmonic Valve There is no pulmonic valvular stenosis. There is a trace amount of pulmonic regurgitation. Great Vessels The aortic root is normal size. The inferior vena cava appeared normal and decreased > 50% with respiration (RAP 5-10 mmHg). Effusions There is no pericardial effusion. : JAVIER CARVALHO > Analilia Hyman
--- NOTE | 2018-11-04 00:35 | DRAGON STRESS TEST REPORT ---
Exercise EKG treadmill stress test. Data procedure: 9. Ordering Provider: Blanco Farah, nurse practitioner, [facility] physician group. Indication: Chest pain in a patient with a history of coronary artery disease. Coronary risk factors:. Age, hyperlipidemia, tobacco abuse disorder, and family history of coronary artery disease. Significant physical findings prior to stress testing show a blood pressure of 102/55 and a heart rate of 81 beat per minute. Auscultation of the heart shows normal S1 and S2.NoS3 or S4 gallops. Systolic murmur in the left sternal border and apex. Lungs are clear to auscultation and percussion. Resting 12-lead EKG:. Sinus Rhythm. Nonspecific T changes inferior wall. Procedure: The patient was excised on a standard Deyvi protocol. . The patient walked a total of 3 minutes and 52 seconds on this protocol and reached a peak heart rate of 99 beats per minute, which is only 61% of maximum predicted heart rate for age. This is at a workload of 4.90 METS. The test was stopped because of. Inability of the patient exercised further on the treadmill due to sciatica of the right leg. The patient described no symptoms of chest pain or discomfort. EXERCISE EKG: Shows no EKG evidence of exercise-induced ischemia, but at a very submaximal level of heart rate with respect to patient's maximum predicted heart rate for her age.. Arrhythmias seen:None. The blood pressure response was normal. At peak exercise the blood pressure was 129/78 millimeters of Hg. The double product was only 12.7 K. Summary of findings and interpretation: 1. No chest pain or chest discomfort symptoms reproduced., But at a very submaximal heart rate achievement. 2. No EKG evidence of ischemia in the form of ST segment depression. 3. Normal blood pressure response. 4. No arrhythmias seen. 5. Poor exercise tolerance, poor aerobic capacity. Non-diagnostic treadmill stress test for ischemia by EKG criteria in view of the very submaximal heart rate achievement. Recommendations: Aggressive risk factor modification, and treatment of underlying co-morbidities. MTDD
== END 2018-11-03 12:40 | disposition home or self-care (01) ==
LOC: ER 10:03 → INTOOBSV 17:56 → EH 17:56 → 3N 21:25
PROVIDERS: ADMIT Hospitalist; ATTEND Hospitalist
PROC: HZ31ZZZ Individual Counseling for Substance Abuse Treatment, Behavioral (ICD-10-PCS; principal; 2018-11-03)
DX: M54.31 Sciatica, right side (principal); R07.89 Other chest pain; E66.9 Obesity, unspecified; E78.5 Hyperlipidemia, unspecified; I25.10 Atherosclerotic heart disease of native coronary artery without angina pectoris; R11.0 Nausea; M54.5 Low back pain; R61 Generalized hyperhidrosis; I25.2 Old myocardial infarction; F17.210 Nicotine dependence, cigarettes, uncomplicated; Z79.82 Long term (current) use of aspirin; Z79.899 Other long term (current) drug therapy; Z95.5 Presence of coronary angioplasty implant and graft; Z82.49 Family history of ischemic heart disease and other diseases of the circulatory system
CPT/HCPCS: 93005 ×2; 99285; 96374; 36415 ×2; 82553; 85025; 85027; 80053; 81001; 84484 ×2; 80061; 93306; 93017; 71046; 93010 ×2; 99406; G0378 ×3; J3490 ×2; J2270 ×2; J2405

== ENCOUNTER 2019-01-13 15:02 | Emergency (ER) | payer SELFPAY ==
--- NOTE | 2019-01-13 16:08 | ER Document Report ---
ED Medical Screen (RME) - General Chief Complaint: Breathing Difficulty Stated Complaint: DIFFICULTY BREATHING Time Seen by Provider: 01/13/19 16:05 Mode of Arrival: Ambulatory Information source: Patient Notes: 58-year-old female presents to ED for cough congestion and tightness in her shoulders and back and upper abdomen due to coughing. She states she is also had a fever intermittent for 2 weeks she states she is also fatigue. She states the symptoms have been going on for 2 weeks. She has had a fever 102 last night was taking cough medicine not take any Tylenol or Motrin. She has been using Mucinex today about 9:00 this morning. She smokes about 7 cigarettes a day. I have greeted and performed a rapid initial assessment of this patient. A comprehensive ED assessment and evaluation of the patient, analysis of test results and completion of medical decision making process will be conducted by an additional ED providers. TRAVEL OUTSIDE OF THE [place] IN LAST 30 DAYS: No - Related Data Allergies/Adverse Reactions: carbamazepine [From Tegretol] Allergy (Verified 01/13/19 16:02) codeine Allergy (Verified 01/13/19 16:02) Past Medical History - Past Medical History Cardiac Medical History: Reports: Hx Heart Attack Renal/ Medical History: Denies: Hx Peritoneal Dialysis Physical Exam - Vital signs Vitals: Temp Pulse Resp BP Pulse Ox 98.1 F 73 18 116/62 97 01/13/19 15:31 01/13/19 15:31 01/13/19 15:31 01/13/19 15:31 01/13/19 15:31 Course - Vital Signs Vital signs: Temp Pulse Resp BP Pulse Ox 98.1 F 73 18 116/62 97 01/13/19 15:31 01/13/19 15:31 01/13/19 15:31 01/13/19 15:31 01/13/19 15:31
[2019-01-13] MEDS ORDERED: ASPIRIN 81 MG TABLET, CHEWABLE PO ONE (16:09)
--- NOTE | 2019-01-13 17:15 | RADIOLOGY REPORT (SQ) ---
EXAM DESCRIPTION: CHEST 2 VIEWS COMPLETED DATE/TIME: 01/13/2019 4:54 pm REASON FOR STUDY: Cough congestion COMPARISON: 11/02/2018. EXAM PARAMETERS: NUMBER OF VIEWS: two views TECHNIQUE: Digital Frontal and Lateral radiographic views of the chest acquired. RADIATION DOSE: NA LIMITATIONS: none FINDINGS: LUNGS AND PLEURA: No opacities, masses or pneumothorax. No pleural effusion. MEDIASTINUM AND HILAR STRUCTURES: No masses or contour abnormalities. HEART AND VASCULAR STRUCTURES: Heart normal size. No evidence for failure. BONES: No acute findings. HARDWARE: None in the chest. OTHER: No other significant finding. IMPRESSION: NO ACUTE RADIOGRAPHIC FINDING IN THE CHEST. TECHNICAL DOCUMENTATION: JOB ID: [id number] [employer]- All Rights Reserved Reading location - IP/workstation name: [email or web address]
[2019-01-13 17:29] LABS: ABSOLUTE BASOPHILS # (AUTO) 0.1 10^3/uL (0.0-0.2); ABSOLUTE EOSINOPHILS # (AUTO) 0.3 10^3/uL (0.0-0.6); ABSOLUTE LYMPHOCYTES (AUTO) 2.2 10^3/uL (0.5-4.7); ABSOLUTE MONOCYTES (AUTO) 0.8 10^3/uL (0.1-1.4); ABSOLUTE NEUT (AUTO) 5.6 10^3/uL (1.7-8.2); BASOPHILS % (AUTO) 0.6 % (0-2); EOSINOPHILS % (AUTO) 3.2 % (0-6); HEMATOCRIT 42.2 % (36.0-47.0); HEMOGLOBIN 14.3 g/dL (12.0-15.5); LYMPHOCYTES % (AUTO) 24.7 % (13-45); MEAN CORPUSCULAR HEMOGLOBIN 30.1 pg (27.0-33.4); MEAN CORPUSCULAR HGB CONC 33.9 g/dL (32.0-36.0); MEAN CORPUSCULAR VOLUME 89 fl (80-97); MONOCYTES % (AUTO) 8.9 % (3-13); PLATELET COUNT 165 10^3/uL (150-450); RED BLOOD COUNT 4.74 10^6/uL (3.72-5.28); RED CELL DISTRIBUTION WIDTH 13.8 % (11.5-14.0); SEGMENTED NEUTROPHILS % (AUTO) 62.6 % (42-78); TOTAL CELLS COUNTED % (AUTO) 100 %
[2019-01-13 17:45] LABS: ALBUMIN 4.2 g/dL (3.5-5.0); ALKALINE PHOSPHATASE 86 U/L (38-126); ANION GAP 8 (5-19); ASPARTATE AMINO TRANSFERASE 23 U/L (14-36); BILIRUBIN,DIRECT 0.2 mg/dL (0.0-0.4); BILIRUBIN,TOTAL 0.8 mg/dL (0.2-1.3); BLOOD UREA NITROGEN 9 mg/dL (7-20); CALCIUM 9.3 mg/dL (8.4-10.2); CARBON DIOXIDE 30 mmol/L (22-30); CHLORIDE 101 mmol/L (98-107); CREATINE KINASE 65 U/L (30-135); GLUCOSE 83 mg/dL (75-110); POTASSIUM 4.3 mmol/L (3.6-5.0); TOTAL PROTEIN 7.7 g/dL (6.3-8.2)
[2019-01-13 17:57] LABS: CREATINE KINASE MB 0.23 ng/mL (<4.55); NT PRO BNP 300 pg/mL (5-900)
[2019-01-13 18:01] LABS: TROPONIN I < 0.012 ng/mL
--- NOTE | 2019-01-13 23:01 | ER Document Report ---
ED Respiratory Problem - General Chief Complaint: Breathing Difficulty Stated Complaint: DIFFICULTY BREATHING Time Seen by Provider: 01/13/19 16:05 Mode of Arrival: Ambulatory TRAVEL OUTSIDE OF THE [place] IN LAST 30 DAYS: No - HPI Patient complains to provider of: No: Asthma, Chest pain, CHF, COPD, Cough, Short of breath, Other Onset: Last week Duration: Continuous Initiating Event: No: Allergy, Aspiration/Choking, Exertion, Exposure to chemicals, Exposure to dust, Exposure to fumes, Exposure to mold, Exposure to smoke, Out of meds, Sports/exercise, URI, Other Quality of pain: denies: No pain, Achy, Burning, Cramping, Dull, Fullness, Pressure, Sharp, Stabbing, Throbbing, Other Severity: Mild Context: denies: DVT, Factor V Leiden, Hx asthma, Hx CHF, Hx COPD, Malignancy, , Recent cardiac event, Recent foreign travel, Recent long distance trvl, Recent immobilization, Recent surgery, Smoker, Other Chest pain/discomfort: denies: Center, Constant, Heaviness, Intermittent, Left, Pain, Radiates to arm, Radiates to back, Radiates to jaw, Right, Tightness, Worse with deep breaths Cough: Nonproductive. denies: Productive, Stridor, Suspect aspiration Sputum amount: None Associated symptoms: Sore Throat. denies: None, Ankle/leg swelling, Allergy/hay fever, Anxiety, Bloody cough, Chest pain/discomfort, Chills, Congestion, Cough, Dental decay, Difficulty breathing, Earache, Extertional dyspnea, Facial pain, Fever, Headache, Heart racing, Hoarseness, Hyperventilation, Jaw pain, Leg/calf/joint pain, Muscle spasms, Orthopnea, PND, Runny nose, Sinus pain/pressure, Short of breath, Sweaty, Tingling face, Tingling hands, Unable to swallow, Toothache, Wheezing, Other Worsened by: deep breaths - Related Data Allergies/Adverse Reactions: carbamazepine [From Tegretol] Allergy (Verified 01/13/19 16:02) codeine Allergy (Verified 01/13/19 16:02) Past Medical History - General Information source: Patient - Social History Smoking Status: Current Every Day Smoker Chew tobacco use (# tins/day): No Frequency of alcohol use: None Drug Abuse: None Family History: None, CAD, Hypertension Patient has suicidal ideation: No Patient has homicidal ideation: No - Past Medical History Cardiac Medical History: Reports: Hx Heart Attack Renal/ Medical History: Denies: Hx Peritoneal Dialysis Review of Systems - Review of Systems Constitutional: denies: No symptoms reported, See HPI, Chills, Diaphoresis, Fever, Malaise, Weakness, Other, Weight gain, Weight loss, Recent illness EENT: denies: No symptoms reported, See HPI, Eye pain, Eye discharge, Blurred vision, Tearing, Double vision, Ear pain, Ear discharge, Nose pain, Nose congestion, Nose discharge, Sinus pressure, Sinus discharge, Throat pain, Difficulty swallowing, Throat swelling, Mouth pain, Mouth swelling, Dental problem, Vertigo, Other Cardiovascular: denies: No symptoms reported, See HPI, Chest pain, Palpitations, Heart racing, Orthopnea, Dyspnea, Syncope, Dizziness, Lightheaded, Edema, Other, Paroxysmal Nocturnal Dysp Respiratory: Cough, Short of breath Gastrointestinal: denies: No symptoms reported, See HPI, Abdomen distended, Abdominal pain, Diarrhea, Nausea, Vomiting, Constipation, Blood streaked bowels, Poor appetite, Poor fluid intake, Blood in vomit, Black stools, Rectal bleeding, Last bowel movement, Fecal incontinence, Other Genitourinary: denies: No symptoms reported, See HPI, Burning, Dysuria, Discharge, Frequency, Flank pain, Hematuria, Incontinence, Pain, Urgency, Retention, Other -: Yes All other systems reviewed and negative Physical Exam - Vital signs Vitals: Temp Pulse Resp BP Pulse Ox 98.1 F 73 18 116/62 97 01/13/19 15:31 01/13/19 15:31 01/13/19 15:31 01/13/19 15:31 01/13/19 15:31 Notes: PHYSICAL EXAMINATION: GENERAL: Well-appearing, well-nourished and in no acute distress. HEAD: Atraumatic, normocephalic. EYES: Pupils equal round and reactive to light, extraocular movements intact, sclera anicteric, conjunctiva are normal. ENT: nares patent, oropharynx clear without exudates. Moist mucous membranes. NECK: Normal range of motion, supple without lymphadenopathy LUNGS: Breath sounds clear to auscultation bilaterally and equal. No wheezes rales or rhonchi. HEART: Regular rate and rhythm without murmurs ABDOMEN: Soft, nontender, normoactive bowel sounds. No guarding, no rebound. No masses appreciated. EXTREMITIES: Normal range of motion, no pitting or edema. No cyanosis. NEUROLOGICAL: No focal neurological deficits. Moves all extremities spontaneously and on command. PSYCH: Normal mood, normal affect. SKIN: Warm, Dry, normal turgor, no rashes or lesions noted. Course - Vital Signs Vital signs: Temp Pulse Resp BP Pulse Ox 98.1 F 73 18 91/43 L 96 01/13/19 15:31 01/13/19 15:31 01/13/19 15:31 01/13/19 21:31 01/13/19 21:31 - Laboratory Result Diagrams: 01/13/19 16:56 01/13/19 16:56 - Diagnostic Test Radiology reviewed: Image reviewed, Reports reviewed - EKG Interpretation by Me EKG shows normal: Sinus rhythm Rate: Normal Rhythm: NSR When compared to previous EKG there are: No significant change - Transfer of Care Notes: 01/13/19 22:58 Patient claims that she has pain when she takes a deep breath and has been cough ing but no productive sputum labs and test appear normal believe this is a bronchitis she is tried [id number] medicines I will give her some Hycodan and an albuterol inhaler as I believe this is bronchitis with bronchospasm to return if she gets any worse Discharge - Discharge Clinical Impression: Bronchitis, acute, with bronchospasm Condition: Stable Disposition: HOME, SELF-CARE Instructions: Bronchitis With Bronchospasm (Wheezing) ([facility]) Additional Instructions: Return if worse use albuterol and Hycodan for coughing follow-up with your regular doctor Prescriptions: Hydrocodone Bit/Homatropine [Hycodan 5-1.5 mg Tablet] 1 tab PO Q4HP PRN #24 tablet PRN Reason: Albuterol Sulfate [Albuterol Sulfate Hfa] 8.5 gm IH Q6 PRN #1 [id number] PRN Reason: Shortness Of Breath
[2019-01-13 23:33] VITALS: BP 103/51
--- NOTE | 2019-01-14 07:23 | EKG REPORT ---
SEVERITY:- ABNORMAL ECG - SINUS RHYTHM BORDERLINE LEFT AXIS DEVIATION NONSPECIFIC T ABNORMALITIES, INFERIOR LEADS : Confirmed by: Donn Choudhury 14-Jan-2019 07:21:59
== END 2019-01-13 23:58 | disposition home or self-care (01) ==
LOC: ER 15:02
DX: J20.9 Acute bronchitis, unspecified (principal); F17.200 Nicotine dependence, unspecified, uncomplicated; Z88.6 Allergy status to analgesic agent; I25.2 Old myocardial infarction
CPT/HCPCS: 36415; 71046; 80053; 82550; 82553; 83880; 84484; 85025; 93005; 93010

== ENCOUNTER 2019-09-09 12:11 | Emergency (ER) | payer SELFPAY ==
[2019-09-09] MEDS ORDERED: NORMAL SALINE 1000 ML 1,000 ML IV ONE (12:42)
[2019-09-09] MEDS ORDERED: KETOROLAC TROMETHAMINE INJ/PF 30 MG/1 ML SDV IV ONE (12:42)
[2019-09-09] MEDS ORDERED: ONDANSETRON HCL INJ/PF 4 MG/2 ML SDV IV ONE (12:42)
--- NOTE | 2019-09-09 12:43 | ER Document Report ---
ED Fever - General Chief Complaint: Fever Stated Complaint: FEVER,NAUSEA,VOMITING Time Seen by Provider: 09/09/19 12:26 Notes: CHIEF COMPLAINT: Multiple complaints HPI: 59-year-old female presenting to the emergency department with multiple co mplaints. Patient states she went on vacation out of town to see family last week. Patient went to [place]. Patient was only told afterwards that her aunt and uncle had both tested positive for COVID over a week ago. Patient states that she came back into town 4 days ago. Patient states that she did go to work 3 days ago but 2 days ago began having body aches, nausea vomiting, generalized abdominal pain, generalized myalgia. Patient reports very slight cough with yellow sputum no shortness of breath. Has had 2-3 episodes of vomiting daily. Has had 2-3 episodes of loose stools daily. No definite fevers. ROS: See HPI - all other systems were reviewed and are otherwise negative Constitutional: no fever Eyes: no drainage, no blurred vision ENT: no runny nose, no sore throat Cardiovascular: + chest wall pain Resp: no SOB, no cough GI: + vomiting, + diarrhea, positive generalized she said there were 49 holes abdominal pain : no dysuria Integumentary: no rash Allergy: no hives Musculoskeletal: no extremity pain or swelling Neurological: no numbness/tingling, no weakness MEDICATIONS: I agree with the patient medications as charted by the RN. ALLERGIES: I agree with the allergies as charted by the RN. PAST MEDICAL HISTORY/PAST SURGICAL HISTORY: Reviewed and agree as charted by RN. SOCIAL HISTORY: Reviewed and agree as charted by RN. FAMILY HISTORY: No significant familial comorbid conditions directly related to patient complaint EXAM: Reviewed vital signs as charted by RN. CONSTITUTIONAL: Alert and oriented and responds appropriately to questions. Well-appearing; well-nourished HEAD: Normocephalic; atraumatic EYES: PERRL; Conjunctivae clear, sclerae non-icteric ENT: normal nose; no rhinorrhea; moist mucous membranes; pharynx without lesions noted, no uvula edema or deviation, no tonsillar hypertrophy, phonation normal NECK: Supple without meningismus; non-tender; no cervical lymphadenopathy, no masses CARD: RRR; no murmurs, no clicks, no rubs, no gallops; symmetric distal pulses RESP: Normal chest excursion without splinting or tachypnea; breath sounds clear and equal bilaterally; no wheezes, no rhonchi, no rales, pulse oximetry 96% on room air not hypoxic. There is tenderness over the anterior chest wall to palpation ABD/GI: Normal bowel sounds; non-distended; soft, no focal abdominal pain on palpation, no rebound, no guarding; no palpable organomegaly or masses. BACK: The back appears normal and is non-tender to palpation, there is no CVA tenderness EXT: Normal ROM in all joints; mild generalized muscular tenderness on palpation of the extremities; no cyanosis, no effusions, no edema SKIN: Normal color for age and race; warm; dry; good turgor; no acute lesions noted NEURO: Moves all extremities equally; Motor and sensory function intact PSYCH: The patient's mood and manner are appropriate. Grooming and personal hygiene are appropriate. MDM: 59-year-old female presenting with nausea vomiting diarrhea, slight cough, low-grade fevers at home over the last several days. Recently had exposure to family members with COVID-19. 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 Patient with generalized myalgia on palpation, low suspicion for ACS. She does report a history of 3 stents in the heart from an [place] 2 years ago but otherwise no medical problems no medications. Will check screening labs, treat patient's symptoms obtain COVID test TRAVEL OUTSIDE OF THE [place] IN LAST 30 DAYS: No - Related Data Allergies/Adverse Reactions: carbamazepine [From Tegretol] Allergy (Verified 09/09/19 12:43) codeine Allergy (Verified 09/09/19 12:43) Past Medical History - Social History Smoking Status: Unknown if Ever Smoked Family History: None, CAD, Hypertension - Past Medical History Cardiac Medical History: Reports: Hx Heart Attack Renal/ Medical History: Denies: Hx Peritoneal Dialysis Physical Exam - Vital signs Vitals: Temp 99.4 F 09/09/19 12:20 Course - Re-evaluation Re-evalutation: 09/09/19 15:03 Patient lab work does not show acute emergent abnormalities. Patient states she feels much better after fluids and medication. She we did give her additional pain medication here per her request. She likely has a viral etiology. She is person under investigation at this time and she is aware the need to quarantine at home until negative test results - Vital Signs Vital signs: Temp Pulse Resp BP Pulse Ox 99.4 F 89 26 H 114/60 97 09/09/19 12:24 09/09/19 12:24 09/09/19 12:24 09/09/19 12:24 09/09/19 12:24 - Laboratory Result Diagrams: 09/09/19 12:50 09/09/19 12:50 Laboratory results interpreted by me: 09/09/19 09/09/19 09/09/19 12:50 12:50 12:50 Plt Count 101 L Seg Neuts % (Manual) 81 H Lymphocytes % (Manual) 3 L Eosinophils % (Manual) 8 H Abs Lymphs (Manual) 0.1 L Sodium 134.0 L AST 285 H ALT 204 H Urine Protein 100 H Urine Bilirubin SMALL H Urine Urobilinogen 4.0 H Ur Leukocyte Esterase TRACE H Discharge - Discharge Clinical Impression: Myalgia, Cough, Person under investigation for COVID-19 Vomiting Qualifiers: Vomiting type: unspecified Vomiting Intractability: non-intractable Nausea presence: with nausea Qualified Code(s): R11.2 - Nausea with vomiting, unspecified Condition: Stable Disposition: HOME, SELF-CARE Additional Instructions: Take Zofran for any recurrent nausea or vomiting. Take Voltaren to help with generalized body ache. You are considered a person under investigation at this time quarantine at home for the next 14 days or until you have a negative test result. Follow-up with a primary care provider for reevaluation of symptoms call for appointment. Return for any worsening symptoms or concerns Prescriptions: Diclofenac Sodium [Voltaren 50 Mg Areli.] 50 mg PO BID #20 tablet. Ondansetron [Zofran Odt 4 mg Tablet] 1 - 2 tab PO Q4H PRN #15 tab.rapdis PRN Reason: For Nausea/Vomiting Forms: Return to Work
--- NOTE | 2019-09-09 13:25 | RADIOLOGY REPORT (SQ) ---
EXAM DESCRIPTION: CHEST SINGLE VIEW IMAGES COMPLETED DATE/TIME: 09/09/2019 1:07 pm REASON FOR STUDY: cough COMPARISON: 01/13/2019. EXAM PARAMETERS: NUMBER OF VIEWS: One view. TECHNIQUE: Single frontal radiographic view of the chest acquired. RADIATION DOSE: NA LIMITATIONS: None. FINDINGS: LUNGS AND PLEURA: No opacities, masses or pneumothorax. No pleural effusion. MEDIASTINUM AND HILAR STRUCTURES: No masses. Contour normal. HEART AND VASCULAR STRUCTURES: Heart normal in size. Normal vasculature. BONES: No acute findings. HARDWARE: None in the chest. OTHER: No other significant finding. IMPRESSION: NO ACUTE RADIOGRAPHIC FINDING IN THE CHEST. TECHNICAL DOCUMENTATION: JOB ID: [id number] 2010 [employer]- All Rights Reserved Reading location - IP/workstation name: [email or web address]
[2019-09-09 13:45] LABS: HEMATOCRIT 44.1 % (36.0-47.0); HEMOGLOBIN 15.1 g/dL (12.0-15.5); MEAN CORPUSCULAR HGB CONC 34.2 g/dL (32.0-36.0); MEAN CORPUSCULAR VOLUME 88 fl (80-97); PLATELET COUNT 101 10^3/uL (150-450); RED BLOOD COUNT 5.03 10^6/uL (3.72-5.28); RED CELL DISTRIBUTION WIDTH 13.9 % (11.5-14.0); WHITE BLOOD COUNT 4.6 10^3/uL (4.0-10.5)
[2019-09-09 13:51] VITALS: BP 114/60
[2019-09-09 14:03] LABS: ALBUMIN 3.7 g/dL (3.5-5.0); ALKALINE PHOSPHATASE 108 U/L (38-126); ANION GAP 6 (5-19); ASPARTATE AMINO TRANSFERASE 285 U/L (14-36); BILIRUBIN,DIRECT 0.2 mg/dL (0.0-0.4); BILIRUBIN,TOTAL 0.8 mg/dL (0.2-1.3); BLOOD UREA NITROGEN 8 mg/dL (7-20); CALCIUM 8.5 mg/dL (8.4-10.2); CARBON DIOXIDE 25 mmol/L (22-30); CHLORIDE 103 mmol/L (98-107); GLUCOSE 106 mg/dL (75-110); POTASSIUM 3.9 mmol/L (3.6-5.0); TOTAL PROTEIN 6.7 g/dL (6.3-8.2)
[2019-09-09 14:07] LABS: APPEARANCE,URINE SLIGHTLY-CLOUDY; BILIRUBIN,URINE SMALL (NEGATIVE); COLOR,URINE AMBER; GLUCOSE, URINE NEGATIVE (NEGATIVE); KETONES,URINE NEGATIVE (NEGATIVE); LEUKOCYTE ESTERASE,URINE TRACE (NEGATIVE); NITRITE,URINE NEGATIVE (NEGATIVE); PROTEIN,URINE 100 mg/dL (NEGATIVE); URINE SPECIFIC GRAVITY 1.028
[2019-09-09 14:16] LABS: ABSOLUTE LYMPHOCYTES# (MANUAL) 0.1 10^3/uL (0.5-4.7); ABSOLUTE MONOCYTES # (MANUAL) 0.4 10^3/uL (0.1-1.4); BASOPHILS % (MANUAL) 0 % (0-2); EOSINOPHILS % (MANUAL) 8 % (0-6); LYMPHOCYTES % (MANUAL) 3 % (13-45); MONOCYTES % (MANUAL) 8 % (3-13); SEGMENTED NEUTROPHILS % (MAN) 81 % (42-78); TOTAL CELLS COUNTED 100
[2019-09-09 14:17] LABS: HYPOCHROMASIA SLIGHT; PLATELET COMMENT DECREASED; TEAR DROP CELLS SLIGHT
[2019-09-09] MEDS ORDERED: OXYCODONE-ACETAMINOPHEN 5-325 MG TABLET PO ONE (14:30)
--- NOTE | 2019-09-09 19:14 | EKG REPORT ---
SEVERITY:- OTHERWISE NORMAL ECG - SINUS RHYTHM BORDERLINE LEFT AXIS DEVIATION : Confirmed by: Analilia Hyman MD 09-Sep-2019 19:14:08
== END 2019-09-09 15:31 | disposition home or self-care (01) ==
LOC: ER 12:11
DX: M79.10 Myalgia, unspecified site (principal); R05 Cough; R11.2 Nausea with vomiting, unspecified; Z20.828 Contact with and (suspected) exposure to other viral communicable diseases; R50.9 Fever, unspecified; R10.84 Generalized abdominal pain; R19.7 Diarrhea, unspecified; Z88.8 Allergy status to other drugs, medicaments and biological substances
CPT/HCPCS: 93005; 99284; 96361; 96374; 96375; 36415; 83690; 85025; 87635; 80053; 81001; 84484; 71045; 93010; J1885; J2405; J7030; C9803

== ENCOUNTER 2019-11-30 19:59 | Emergency (ER) | payer SELFPAY ==
[2019-11-30] MEDS ORDERED: HYDROCODONE/ACETAMINOPHEN 5-325 MG TABLET PO ONE (21:07)
[2019-11-30] MEDS ORDERED: KETOROLAC TROMETHAMINE INJ/PF 30 MG/1 ML SDV IM ONE (21:07)
--- NOTE | 2019-11-30 21:09 | ER Document Report ---
ED Medical Screen (RME) - General Chief Complaint: Low Back Pain Stated Complaint: BACK PAIN Notes: Patient presents complaining of low back pain that radiates into the right lower extremity for the past week. Patient denies any injury or fever. Patient denies any urinary retention or incontinence. I have greeted and performed a rapid initial assessment of this patient. A comprehensive ED assessment and evaluation of the patient, analysis of test results and completion of the medical decision making process will be conducted by additional ED providers. TRAVEL OUTSIDE OF THE [place] IN LAST 30 DAYS: No - Related Data Allergies/Adverse Reactions: carbamazepine [From Tegretol] Allergy (Verified 11/30/19 21:02) codeine Allergy (Verified 11/30/19 21:02) Home Medications: deny Past Medical History - Social History Chew tobacco use (# tins/day): No Frequency of alcohol use: None Drug Abuse: None - Past Medical History Cardiac Medical History: Reports: Hx Heart Attack, Hx Hypercholesterolemia Renal/ Medical History: Denies: Hx Peritoneal Dialysis Past Surgical History: Reports: Hx Cardiac Catheterization - x3 stent, Hx Cholecystectomy, Hx Hysterectomy Physical Exam - Vital signs Vitals: Temp Pulse Resp BP Pulse Ox 97.5 F 72 16 96/71 L 100 11/30/19 20:13 11/30/19 20:13 11/30/19 20:13 11/30/19 20:13 11/30/19 20:13 - Back Back: CVA tenderness - Right CVA tenderness, Vertebra tenderness - Bar midline tenderness Course - Vital Signs Vital signs: Temp Pulse Resp BP Pulse Ox 97.5 F 72 16 96/71 L 100 11/30/19 20:13 11/30/19 20:13 11/30/19 20:13 11/30/19 20:13 11/30/19 20:13
--- NOTE | 2019-11-30 22:11 | RADIOLOGY REPORT (SQ) ---
LUMBAR SPINE: 11/30/2019 9:09 PM CDT TECHNIQUE: AP, lateral, right and left lateral oblique coned down views of the lumbar spine were obtained. COMPARISON: None available HISTORY: 59-year old patient with back pain. FINDINGS: Five non-rib bearing vertebrae are seen. There are minimal anterior osteophytes present. The vertebral bodies appear well-aligned. No discrete pars defects are seen. The vertebral body heights appear to be maintained. No significant intervertebral disc space narrowing is seen. There is no evidence of acute fracture or subluxation. Both sacroiliac joints appear normal. Surgical clips are seen overlying the right upper quadrant of the abdomen, consistent with a previous cholecystectomy. Atherosclerotic calcifications are seen at the visualized abdominal aorta. IMPRESSION: There is no evidence of an acute fracture or subluxation is seen in the lumbar spine.
[2019-12-01 04:57] LABS: APPEARANCE,URINE SLIGHTLY-CLOUDY; BILIRUBIN,URINE NEGATIVE (NEGATIVE); COLOR,URINE AMBER; GLUCOSE, URINE NEGATIVE (NEGATIVE); KETONES,URINE NEGATIVE (NEGATIVE); LEUKOCYTE ESTERASE,URINE SMALL (NEGATIVE); NITRITE,URINE NEGATIVE (NEGATIVE); PROTEIN,URINE NEGATIVE (NEGATIVE); URINE SPECIFIC GRAVITY 1.021
[2019-12-01] MEDS ORDERED: HYDROCODONE/ACETAMINOPHEN 5-325 MG TABLET PO ONE (04:57)
[2019-12-01 05:02] LABS: ADD MANUAL MICROSCOPIC YES; RBC,URINE 0-1 /HPF
[2019-12-01 05:03] LABS: BACTERIA,URINE 2+ /HPF
--- NOTE | 2019-12-01 05:20 | ER Document Report ---
ED General - General Chief Complaint: Low Back Pain Stated Complaint: BACK PAIN Notes: 59-year-old female with past medical history of stent placement, AR and sciatica presenting today with right lower back pain that radiates down to the back of her thigh and down to her fuller. She states that the pain has been there for approximately 2 to 3 weeks and has worsened in the last 4 to 5 days. She states that the pain is like a squeezing cramping sensation with sharp stabbing this. She states it feels like her prior episodes of sciatica but is worse in intensity. She denies any trauma to her back. She denies any numbness or tingling. She denies any saddle anesthesia. She denies any loss of bowel or bladder control. States the last time this happened she took Dilaudid and help alleviate her pain. She states that she has taken ibuprofen and B12 medications to help alleviate her pain as well as attempted massage and oil and stretching. None of this has provided her relief. She has just established care with primary care provider. TRAVEL OUTSIDE OF THE [place] IN LAST 30 DAYS: No - Related Data Allergies/Adverse Reactions: carbamazepine [From Tegretol] Allergy (Verified 11/30/19 21:02) codeine Allergy (Verified 11/30/19 21:02) Home Medications: deny Past Medical History - Social History Smoking Status: Current Every Day Smoker Chew tobacco use (# tins/day): No Frequency of alcohol use: None Drug Abuse: None Family History: None, CAD, Hypertension Patient has homicidal ideation: No - Past Medical History Cardiac Medical History: Reports: Hx Heart Attack, Hx Hypercholesterolemia Renal/ Medical History: Denies: Hx Peritoneal Dialysis Past Surgical History: Reports: Hx Cardiac Catheterization - x3 stent, Hx Cholecystectomy, Hx Hysterectomy Review of Systems - Review of Systems Constitutional: No symptoms reported EENT: No symptoms reported Cardiovascular: No symptoms reported Respiratory: No symptoms reported Gastrointestinal: No symptoms reported Genitourinary: No symptoms reported Female Genitourinary: No symptoms reported Musculoskeletal: See HPI Physical Exam - Vital signs Vitals: Temp Pulse Resp BP Pulse Ox 97.5 F 72 16 96/71 L 100 11/30/19 20:13 11/30/19 20:13 11/30/19 20:13 11/30/19 20:13 11/30/19 20:13 Interpretation: Bradycardic - Notes Notes: Adult General: GENERAL: Alert, interacts well. No acute distress HEAD: Normocephalic, atraumatic EYES: Pupils equal, round and reactive to light. Extraocular movements intact. ENT: Airway patent. Nares patent. NECK: Full range of motion. Supple. LUNGS: Clear to auscultation bilaterally, no wheezes, rales, or rhonchi. No respiratory distress. Nontender chest wall. HEART: Regular rate and rhythm. No murmurs, rubs or gallops. ABDOMEN: Soft, nontender. Nondistended. (-) [address] sign. Bowel sounds present in all 4 quadrants. No rebound, guarding or masses. GENITOURINARY: Deferred EXTREMITIES: Moves all 4 extremities spontaneously. No edema, normal radial and dorsal pedis pulses bilaterally. No cyanosis. BACK: Lumbar paraspinals are tender to palpation. Tenderness along right SI mike nt. No cervical, thoracic, lumbar midline tenderness. No saddle anesthesia, normal distal neurovascular exam. Moves all extremities with full range of motion. (+) straight leg test. NEUROLOGICAL: Alert and oriented x3. Normal speech. Strength 5/ 5 in all extremities. PSYCH: Normal affect, normal mood. SKIN: Warm, dry, normal turgor. No rashes or lesions noted. Course - Re-evaluation Re-evalutation: 12/01/19 06:31 X-ray shows no abnormal findings. No fracture no subluxation. CT scan shows mild L4-L5 canal stenosis secondary to diffuse disc osteophyte complex L4-S1 neural foraminal stenosis. Also shows a right renal cyst. She is to follow-up with her primary care. She may need to have a referral to orthopedics or ph ysical therapy. Pain has improved. I will discharge the patient with pain medications, steroids and muscle relaxors. I did discuss with the patient that I recommend she follows up with her primary care provider as soon as possible. She may return to the emergency deparment for worsening symptoms or the development of new symptoms. She is agreeable to this plan. - Vital Signs Vital signs: Temp Pulse Resp BP Pulse Ox 97.8 F 53 L 16 123/79 99 12/01/19 01:46 12/01/19 01:46 12/01/19 01:46 12/01/19 01:46 12/01/19 01:46 Discharge - Discharge Clinical Impression: Spinal stenosis at L4-L5 level, Renal cyst Sciatica Qualifiers: Laterality: right Qualified Code(s): M54.31 - Sciatica, right side Condition: Stable Disposition: HOME, SELF-CARE Instructions: Ice Packs ([facility]), Low Back Pain ([facility]) Additional Instructions: Your CT scan shows some mild L4-L5 canal stenosis at L5-S1 stenosis. Also shows that there is a right renal cyst. Based on physical exam I do feel that you do have an exacerbation of her sciatica. Is likely exacerbated by the CT findings. Please take medication as prescribed. Please follow-up with your primary care provider soon as possible. Please return to emergency department for worsening symptoms or development of any symptoms. Prescriptions: Ketorolac Tromethamine [Toradol 10 mg Tablet] 10 mg PO Q6HP PRN 5 Days #20 tablet PRN Reason: Prednisone [Deltasone 10 mg Tablet] 10 mg PO ASDIR PRN #21 tablet PRN Reason: Methocarbamol [Robaxin 500 mg Tablet] 500 mg PO TID 7 Days #15 tablet
--- NOTE | 2019-12-01 06:22 | RADIOLOGY REPORT (SQ) ---
EXAM: CT lumbar spine without IV contrast CLINICAL DATA: 59-year-old female with worsening radiculopathy. TECHNICAL DATA: Multiple high-resolution thin axial CT images were performed through the lumbar spine followed by sagittal and coronal reconstructed images. The CT study is performed according to ALARA (as low as reasonably achievable) or ALARA/IMAGE GENTLY, with automatic adjustment of mA and/or kV according to patient size. Performed on: 12/01/2019 at 5:44 AM COMPARISONS: Plain radiographs of the lumbar spine performed on 11/30/2019 FINDINGS: The lumbar vertebrae are normal in height. There is normal alignment of the vertebrae. The disc spaces are well preserved in height. Bone mineralization is normal. There is normal alignment of the facet joints on the parasagittal images. There is no evidence of acute fracture or subluxation. There is mild L4-L5 canal stenosis secondary to a diffuse disc osteophyte complex and ligamentum flavum hypertrophy. There is right L5-S1 neural foraminal stenosis secondary to a mild disc osteophyte complex and right-sided facet joint arthropathy. The paravertebral and paraspinal soft tissues are unremarkable. There is a large cyst arising from the medial cortex of the upper pole of the left kidney measuring approximately 4.0 x 3.4 cm in cross-sectional diameter. The gallbladder is surgically absent. There are atherosclerotic calcifications along the infrarenal aorta and iliac arteries. IMPRESSION: 1. No evidence of acute osseous injury involving the lumbar spine. 2. Mild L4-L5 canal stenosis secondary to a diffuse disc osteophyte complex and ligamentum flavum hypertrophy. 3. Right L5-S1 neural foraminal stenosis secondary to a mild disc osteophyte complex and right-sided facet joint arthropathy. 4. Left renal cyst measuring approximately 4.0 x 3.4 cm in cross-sectional diameter.
[2019-12-01 07:27] VITALS: BP 132/70
== END 2019-12-01 07:16 | disposition home or self-care (01) ==
LOC: ER 19:59
DX: M48.061 Spinal stenosis, lumbar region without neurogenic claudication (principal); M25.78 Osteophyte, vertebrae; M54.41 Lumbago with sciatica, right side; Q61.01 Congenital single renal cyst; F17.200 Nicotine dependence, unspecified, uncomplicated; Z88.6 Allergy status to analgesic agent; Z88.5 Allergy status to narcotic agent
CPT/HCPCS: 99285; 96372; 81001; 72110; 72131; J1885